=== PATIENT | female | born 1980 | race Hispanic/Latino ===

== ENCOUNTER 2019-06-09 10:52 | Emergency (ER) | payer SELFPAY ==
--- NOTE | 2019-06-09 12:41 | RAD ---
XR Shoulder Rt 3 View STANDARD HISTORY: Right shoulder pain x1 week COMPARISON: None. FINDINGS: The acromioclavicular and glenohumeral joints appear unremarkable. I do not see any signs o f fracture or other findings. IMPRESSION: Unremarkable right shoulder.
== END 2019-06-09 13:03 | disposition home or self-care (01) ==
LOC: ERS 10:52
DX: M54.12 Radiculopathy, cervical region (principal)